=== PATIENT | female | born 1960 | race Caucasian/White ===

== ENCOUNTER 2016-09-27 07:55 | Day surgery (SDC) | payer OTHER ==
[~2016-09-27] VITALS: Ht 157.5 cm; Wt 93.0 kg
[~2016-09-27 07:55] MED LIST: 0.9% Sodium Chloride 1,000 ML IV SCH; ALPR0.5T8 PO; BENZ200C44 PO; BIOT1CAP3 PO; GUAI120L57 PO; HYDR-3479 PO; NEX40C PO; OMEG500C PO; OMEP40CA36 PO; SOLI5TAB2 PO; SYN.15T2 PO; Sodium Chloride LOK Flush 10 mL Syringe IV PRN; VARE1TAB21 PO; ZES10 PO; fentaNYL-PF 50 mCg/mL 2 mL Inj IVPUSH PRN
[2016-09-27 08:23] VITALS: BP 111/71; PULSE 79; RESP 16; O2SAT 93
[2016-09-27 09:00] VITALS: BP 94/70; PULSE 72; RESP 12; O2SAT 91
[2016-09-27 09:08] VITALS: BP 96/65; RESP 12; O2SAT 92
[2016-09-27] MEDS ORDERED: 0.9% Sodium Chloride 1,000 ML IV ONE (09:17)
[2016-09-27 09:18] VITALS: BP 102/75; PULSE 79; RESP 12; O2SAT 94
--- NOTE | 2016-09-27 12:41 | ENDO ---
[address] [address] ENDOSCOPY PROCEDURE PATIENT: FABRICE MARINO : 1960 MR#: [id number] ADMIT: 09/27/2016 JOB ID: [id number] TYPE OF OPERATION: Esophagogastroduodenoscopy (EGD) with biopsy. PREOPERATIVE DIAGNOSIS(ES): Epigastric pain. POSTOPERATIVE DIAGNOSIS(ES): Normal upper endoscopy, status post biopsy. ANESTHESIA: Fentanyl 100 mcg, Versed 6 mg IV administered. COMPLICATIONS: None. BLOOD LOSS: Minimal. DESCRIPTION OF PROCEDURE: After the risks and benefits were explained to the patient, informed consent was obtained. After anesthesia was administered the upper endoscope was inserted into the mouth, intubating through the esophagus, stomach, and second portion of duodenum, and the mucosa carefully examined. After the procedure was done, the scope was withdrawn and the procedure terminated. FINDINGS: Upon inspection of the esophagus, the esophagus was normal, without masses, ulcers, or lesions. Z-line located at 38 cm from incisors. Upon entering the stomach, the stomach was also normal, without masses, ulcers, or lesions. Retroflexion was normal. Duodenal bulb, first and second portion were normal. Biopsies taken in the antrum, body, and distal esophagus. IMPRESSION: Normal upper endoscopy status post biopsy. RECOMMENDATION: Await pathology results. Follow up in GI Clinic as needed.
--- NOTE | 2016-10-01 15:15 | PATH ---
SURGICAL PATHOLOGY Attending Physician:Xavier Faust MD CASE STATUS: Signed Out PATIENT NAME: FABRICE MARINO PID: [id number] : 1960 DATE COLLECTED:09/27/2016 16:41 SPECIMEN: 1: Stomach, Antrum, Biopsy 2: Gastric, Biopsy 3: Esophagus, Biopsy CLINICAL HISTORY: 1). ANTRUM BIOPSY 2). GASTRIC BODY BIOPSY (RULE OUT H.PYLORI) 3). DISTAL ESOPHAGUS BIOPSY FINAL DIAGNOSIS: 1. Stomach, Antrum, Biopsy: Antral mucosa with no significant diagnostic abnormality. Negative for Helicobacter by immunohistochemistry. Negative for intestinal metaplasia. Negative for dysplasia and malignancy. 2. Stomach, Body, Biopsy: Body-type mucosa with proton pump inhibitor-like changes. Negative for Helicobacter by immunohistochemistry. Negative for intestinal metaplasia. Negative for dysplasia and malignancy. 3. Distal Esophagus, Biopsy: Squamous epithelium with no diagnostic abnormality. Intraepithelial eosinophils are not increased. Negative for dysplasia and malignancy. ICD10: R10.9 GROSS DESCRIPTION: Received are three formalin-filled containers, each labeled with the patient' s name. 1. Received in formalin, labeled with the patient' s name and "antrum BX", are two fragments of beebe, soft tissue ranging in size from 0.1 x 0.1 x 0.1 cm to 0.2 x 0.1 x 0.1 cm. All fragments are totally submitted in cassette 1A. 2. Received in formalin, labeled with the patient' s name and "gastric body BX", are two fragments of beebe, soft tissue ranging in size from 0.1 x 0.1 x 0.1 cm to 0.2 x 0.1 x 0.1 cm. All fragments are totally submitted in cassette 2A. 3. Received in formalin, labeled with the patient' s name and "distal esophagus BX", is one fragment of beebe, soft tissue measuring 0.2 x 0.2 x 0.1 cm. The fragment is totally submitted in cassette 3A. (RL:[id number]) MICRO DESCRIPTION: Immunohistochemical stains were performed on parts 1 and 2 to evaluate for Helicobacter organisms and are negative in both parts. A control stain showed appropriate reactivity. * This test was developed and its performance characteristics determined by [employer]. It has not been cleared or approved by the U.S. Food and Drug Administration. The FDA has determined that such clearance or approval is not necessary. This test is used for clinical purposes. It should not be regarded as investigational or for research. ICD-9 CODES: CPT CODES: 1: 98585, 07287 2: 92526, 38593 3: 08103 Electronically Signed Out Estrella Maddox MD [facility] Pathology [facility], [place] [address] Technical component performed at [facility], [facility] [address], [place], [address]
== END 2016-09-27 23:59 | disposition home or self-care (01) ==
LOC: END 07:55
PROVIDERS: ATTEND Internal Medicine Gastroenterology
DX: K21.9 Gastro-esophageal reflux disease without esophagitis (principal); I10 Essential (primary) hypertension; E03.9 Hypothyroidism, unspecified
CPT/HCPCS: 43239; G0500; J2250; J3010; J7030